=== PATIENT | female | born 1985 | race Caucasian/White ===

== ENCOUNTER 2017-03-04 06:14 | Emergency (ER) | payer SELFPAY ==
[2017-03-04 06:22] VITALS: BMI 42.0
--- NOTE | 2017-03-04 06:58 | DR.GENAD ---
HPI - PCP Primary Care Physician: nfd - HPI Comment HPI Comment: SEEN IN ALPHA AND TREATED. SYMTOMS GETTING WORSE. NO FEVER OR CONGESTION. NO TRAUMA. HISTORY MIGRAIN HEADACHE. - Complaint/Symptoms Chief Complaint Doctors Comments: ELEVATED BLOOD PRESSURE. HEADACHE TIMES 2 WEEKS. Chief Complaint:: pt states" Mireya had a hannah for 2 weeks i went [place] and they gave me meds for my blood pressure there but didn't give me a prescription " Self Treatment fo Chief Complaint: motrin 400 mg without any relief - Nurses notes reviewed Nurses Notes Review: Yes - Source History Provided: Patient - Mode of Arrival Mode of Arrival: Ambulatory - Timing Onset of Chief Complaint: 02/17/17 Came on: Gradually - Duration Duration: Constant Duration: Days - Severity Severity: Moderate PMH - PMH Past Medical History: Yes Past Medical History: Headaches, Hypertension Past Surgical History: No - Family History History of Family Medical Conditions: Yes Family Medical History: Diabetes Mellitus, Hypertension - Social History Do you use any recreational Drugs:: No Lives With: Family Lives Where: Home - infectious screening In the last 2 months have you had wt loss of >10#?: NO Have you had fever, night sweats or hemotysis?: No Have you traveled outside the country in the last 6 months?: No Isolation: Standard ROS - Review of Systems Constitutional: No Symptoms Reported Eyes: No Symptoms Reported ENTM: No Symptoms Reported Respiratoy: No Symptoms Reported Cardiovascular: No Symptoms Reported Gastrointestinal/Abdominal: No Symptoms Reported Genitourinary: No Symptoms Reported Neurological: Headache. negative: Weakness, Dizziness Musculoskeletal: No Symptoms Reported Integumentary: No Symptoms Reported Hematologic/Lymphatic: No Symptoms Reported Endocrine: No Symptoms Reported All Other Systems: Reviewed and Negative PE - Vital Signs Vitals: Temperature 98.2 F Pulse Rate 92 Respiratory Rate 18 Blood Pressure [Left Arm] 154/90 Blood Pressure 186/97 O2 Sat by Pulse Oximetry 97 - General Limitations: No Limitations General Appearance: Alert - Head Head Exam: Normal Inspection - Eyes Eye exam: Normal Appearance - ENT ENT Exam: Normal External Ear Exam External Ear Exam: Normal External Inspection TM/Canal Exam: Bilateral Bulging Nose Exam: Normal Nose Exam Mouth Exam: Normal Inspection Throat Exam: Normal Inspection - Neck Neck Exam: Trachea Midline - Chest Chest Inspection: Symmetric Chest Wall Rise - Respiratory Respiratory Exam: Normal Lung Sounds Bilat Respiratory Exam: Bilateral Clear to Auscultation - Cardiovascular Cardiovascular Exam: Regular Rate, Normal Rhythm, Normal Heart Sounds - Abdominal Exam Abdominal Exam: Normal Bowel Sounds, Soft. negative: Tenderness - Extremities Extremities Exam: Normal Inspection - Back Back Exam: Normal Inspection - Neurologic Neurological Exam: Alert, Oriented X3 - Psychiatric Psychiatric Exam: Normal Affect, Normal Mood - Skin Skin Exam: Normal Color MDM - Differential Diagnosis Differential Diagnosis: HEADACHE, HYPERTENSION Course - Treatment Treatment: SEE ORDERS. BP IMPROVING WITH MEDS - Education/Counseling Education/Counseling: Patient, Education Educated On: Treatment, Diagnosis, Needs for Follow Up - Diagnosis Discharge Problem: Hypertension Qualifiers: Hypertension type: essential hypertension Qualified Code(s): I10 - Essential ( primary) hypertension Headache Qualifiers: Headache type: unspecified Headache chronicity pattern: acute headache Intractability: intractable Qualified Code(s): R51 - Headache - Discharge Plan Disposition: 01 HOME, SELF-CARE Condition: Stable Prescriptions: Wikqexoida-Srcg-Vyltsked [Fioricet Tab] 1 tab PO Q8H PRN #30 tab PRN Reason: Migraine Headache Metoprolol Tartrate [LOPRESSOR 25 MG *] 25 mg PO BID #60 tab Ondansetron HCl [Zofran Tab 4 mg] 4 mg PO Q8H PRN #12 tab PRN Reason: Nausea/Vomiting - Follow ups/Referrals Follow ups/Referrals: NFD,None [Primary Care Provider] - 3 days - Instructions Instructions: Migraine Headache, Hypertension Additional Instructions: RETURN TO ED IF WORSE. BP CHECK DAILY, CHART AND TAKE TO YOUR DOCTOR.
[2017-03-04] MEDS ORDERED: NIFEDIPINE CAP 10 MG PO ONE (06:59)
[2017-03-04] MEDS ORDERED: TORADOL 60 MG VIAL IM ONE (06:59)
[2017-03-04] MEDS ORDERED: NIFEDIPINE CAP 10 MG ONE (07:06)
[2017-03-04] MEDS ORDERED: TORADOL 60 MG VIAL ONE (07:06)
[2017-03-04 07:12] VITALS: BP 154/90
== END 2017-03-04 08:00 | disposition home or self-care (01) ==
LOC: ER 06:14
DX: I10 Essential (primary) hypertension (principal); R51 Headache
CPT/HCPCS: 96372; 99282; J1885

== ENCOUNTER 2017-04-21 11:19 | Emergency (ER) | payer SELFPAY ==
[2017-04-21 11:23] VITALS: BP 135/83; BMI 42.0
--- NOTE | 2017-04-21 11:55 | DR.GENAD ---
HPI - PCP Primary Care Physician: hollie - Complaint/Symptoms Chief Complaint:: pastient stated she has had a lump on her right breast for over a week but the last 3 days it has been hurting. - Source History Provided: Patient - Mode of Arrival Mode of Arrival: Ambulatory - Timing Onset of Chief Complaint: 04/14/17 PMH - PMH Past Medical History: Yes Past Medical History: Headaches, Hypertension Past Surgical History: No Surgical History: Tonsillectomy - Family History History of Family Medical Conditions: Yes Family Medical History: Diabetes Mellitus, Hypertension - Social History Does patient currently use any type of tobacco product: Yes Have you used tobacco products in the last 12 months: Yes Type of Tobacco Use: Cigarettes How many years tobacco product used: 10 Does any household member use tobacco: Yes Alcohol Use: None Do you use any recreational Drugs:: No Lives With: Family Lives Where: Home - infectious screening In the last 2 months have you had wt loss of >10#?: NO Have you had fever, night sweats or hemotysis?: No Have you traveled outside the country in the last 6 months?: No Isolation: Standard ROS - Review of Systems Eyes: No Symptoms Reported ENTM: No Symptoms Reported Respiratoy: No Symptoms Reported Cardiovascular: No Symptoms Reported Gastrointestinal/Abdominal: No Symptoms Reported Genitourinary: No Symptoms Reported Neurological: No Symptoms Reported Integumentary: Change in Color, Rash (right breast) Hematologic/Lymphatic: No Symptoms Reported Endocrine: No Symptoms Reported Psychiatric: No Symptoms Reported PE - Vital Signs Vitals: Temperature 98.6 F Pulse Rate 89 Respiratory Rate 16 Blood Pressure [Left Arm] 154/90 Blood Pressure 135/83 O2 Sat by Pulse Oximetry 98 - General Limitations: No Limitations General Appearance: Alert - Head Head Exam: Normal Inspection, Atraumatic - Eyes Eye exam: Normal Appearance, PERRL, EOMI - ENT ENT Exam: Normal Exam TM/Canal Exam: Bilateral Normal Nose Exam: Normal Nose Exam Mouth Exam: Normal Inspection Throat Exam: Normal Inspection - Neck Neck Exam: Normal Inspection - Chest Chest Inspection: Normal Inspection - Respiratory Respiratory Exam: Normal Lung Sounds Bilat Respiratory Exam: Bilateral Clear to Auscultation - Cardiovascular Cardiovascular Exam: Regular Rate, Normal Rhythm - Abdominal Exam Abdominal Exam: Normal Inspection, Normal Bowel Sounds Abdominal Tenderness: negative: RUQ, RLQ, LUQ, LLQ, Epigastrium, Suprapubic, Diffuse, Mild, Moderate, Severe, Other - Extremities Extremities Exam: Normal Inspection, Full ROM - Back Back Exam: Normal Inspection, Full ROM - Neurologic Neurological Exam: Alert, Oriented X3, CN II-XII Intact - Psychiatric Psychiatric Exam: Normal Affect - Skin Skin Exam: Warm, Dry, Rash (Right breast with a 3x3 cm superficial cellulits with a central area of scabbing), Erythema - Diagnosis Discharge Problem: Cellulitis of right breast - Discharge Plan Condition: Stable - Follow ups/Referrals Follow ups/Referrals: GAVIOTA DEAN [Primary Care Provider] - 3 days - Instructions
== END 2017-04-21 12:05 | disposition home or self-care (01) ==
LOC: ER 11:25
DX: N61.0 Mastitis without abscess (principal)
CPT/HCPCS: 99281; 99282

== ENCOUNTER 2017-10-06 13:16 | Emergency (ER) | payer SELFPAY ==
[2017-10-06 13:22] VITALS: BP 145/80; BMI 39.6
--- NOTE | 2017-10-06 14:45 | DR.GENAD ---
HPI - PCP Primary Care Physician: hollie - HPI Comment HPI Comment: NO FEVER. NO ABDOMINA PAIN. NO DYSURIA. - Complaint/Symptoms Chief Complaint Doctors Comments: PAIN VAGINAL AREA WITH DRAINAGE TIMES FEW WEEKS. LESION FEEL LIKE CYST TO PATIENT. Chief Complaint:: pt stated she has a cyst on her private area that she said that has been there for awhile. - Nurses notes reviewed Nurses Notes Review: Yes - Source History Provided: Patient - Mode of Arrival Mode of Arrival: Ambulatory - Timing Onset of Chief Complaint: 09/15/17 Came on: Suddenly - Duration Duration: Constant Duration: Days - Severity Severity: Moderate PMH - PMH Past Medical History: Yes Past Medical History: Headaches, Hypertension Past Surgical History: Yes Surgical History: Tonsillectomy - Family History History of Family Medical Conditions: Yes Family Medical History: Diabetes Mellitus, Hypertension - Social History Does patient currently use any type of tobacco product: Yes Have you used tobacco products in the last 12 months: Yes Type of Tobacco Use: Cigarettes How many years tobacco product used: 20 Does any household member use tobacco: Yes Alcohol Use: None Do you use any recreational Drugs:: No Lives With: Family Lives Where: Home - infectious screening In the last 2 months have you had wt loss of >10#?: NO Have you had fever, night sweats or hemotysis?: No Have you traveled outside the country in the last 6 months?: No Isolation: Standard ROS - Review of Systems Constitutional: No Symptoms Reported Eyes: No Symptoms Reported ENTM: No Symptoms Reported Respiratoy: No Symptoms Reported Cardiovascular: No Symptoms Reported Gastrointestinal/Abdominal: No Symptoms Reported Genitourinary: Pain (LESION LABIA MINORWART LIKE WITH SMALL DRAINGE ON LATERAL ASPECT OF LESION.) Neurological: No Symptoms Reported Musculoskeletal: No Symptoms Reported Integumentary: Lesions (LABIA) Hematologic/Lymphatic: No Symptoms Reported Endocrine: No Symptoms Reported All Other Systems: Reviewed and Negative PE - Vital Signs Vitals: Temperature 97.6 F Pulse Rate 92 Respiratory Rate 16 Blood Pressure [Left Arm] 154/90 Blood Pressure 145/80 O2 Sat by Pulse Oximetry 98 - General Limitations: No Limitations General Appearance: Alert - Head Head Exam: Normal Inspection - Eyes Eye exam: Normal Appearance - ENT ENT Exam: Normal External Ear Exam External Ear Exam: Normal External Inspection TM/Canal Exam: Bilateral Normal Nose Exam: Normal Nose Exam Mouth Exam: Normal Inspection Throat Exam: Normal Inspection - Neck Neck Exam: Trachea Midline - Chest Chest Inspection: Symmetric Chest Wall Rise - Respiratory Respiratory Exam: Normal Lung Sounds Bilat Respiratory Exam: Bilateral Clear to Auscultation - Cardiovascular Cardiovascular Exam: Regular Rate, Normal Rhythm, Normal Heart Sounds - Abdominal Exam Abdominal Exam: Normal Bowel Sounds, Soft. negative: Tenderness - Extremities Extremities Exam: Normal Inspection - Back Back Exam: Normal Inspection - Neurologic Neurological Exam: Alert, Oriented X3 - Psychiatric Psychiatric Exam: Normal Affect, Normal Mood - Skin Skin Exam: Other (LESION LABIA.) MDM - Additional Information Additional Information Obtained From: Family - Differential Diagnosis Differential Diagnosis: INFECTED LABIA WART. Course - Treatment Treatment: SEE ORDERS. - Education/Counseling Education/Counseling: Patient, Family, Education Educated On: Diagnosis, Needs for Follow Up - Diagnosis Discharge Problem: Genital warts, Labial infection - Discharge Plan Disposition: HOME, SELF-CARE Condition: Stable Prescriptions: Acetaminophen with Codeine [Tylenol/Codeine #3 300-30 mg] 1 tab PO Q6H PRN #15 tab PRN Reason: Pain Clindamycin HCl 300 mg PO Q6H #40 cap Ibuprofen [MOTRIN TAB 800 MG *] 800 mg PO Q8H PRN #30 tab PRN Reason: Pain/Inflammation - Follow ups/Referrals Follow ups/Referrals: NFD,None [Primary Care Provider] - 3 days CHELSI GILLIS [STAFF PHYSICIAN] - 3 days - Instructions Instructions: Vaginitis, Peli-es-Cmir Additional Instructions: RETURN TO ED IF WORSE. YOU ALSO HAVE GENITAL WART.
== END 2017-10-06 15:07 | disposition home or self-care (01) ==
LOC: ER 13:25
DX: A63.0 Anogenital (venereal) warts (principal); N76.1 Subacute and chronic vaginitis
CPT/HCPCS: 99281; 99283